=== PATIENT | female | born 1995 ===

== ENCOUNTER 2017-09-30 13:59 | Emergency (ER) | payer MEDICAID ==
[2017-09-30 14:22] VITALS: BP 113/72; PULSE 83; RESP 18; TEMP 98.4; O2SAT 100
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
== END 2017-09-30 15:13 | disposition home or self-care (01) ==
LOC: C.ER 13:59
DX: J02.8 Acute pharyngitis due to other specified organisms (principal)